=== PATIENT | female | born 1995 | race Caucasian/White ===

== ENCOUNTER → 2022-02-03 13:36 | Outpatient (ROUT) | payer OTHER, SELFPAY ==
[2022-02-03 17:29] LABS: COVID-19 CEPHEID PCR (VTM/NP) Negative (Negative)
== END ==
PROVIDERS: PCP Nurse Practitioner Family; Visit Provider Otolaryngology
DX: J34.89 Other specified disorders of nose and nasal sinuses (principal); R51.9 Headache, unspecified; G44.89 Other headache syndrome; J34.3 Hypertrophy of nasal turbinates; J34.2 Deviated nasal septum
CPT/HCPCS: U0003; U0005

== ENCOUNTER 2022-02-05 09:35 | Day surgery (SDC) | payer OTHER, SELFPAY ==
[2022-02-02 07:55] VITALS: BMI 32.3
[2022-02-05] VITALS (7 sets, daily range): BP systolic 128–138; BP diastolic 91–99; PULSE 68–88; RESP 10–16; TEMP 36.2–36.6; O2SAT 98–100; BMI 32.5
[2022-02-05] MEDS: OXYMETAZOLINE NASAL SPRAY 15 ML 2 SPRAYS NASAL ×2 (10:09→11:55)
[2022-02-05] MEDS: LACTATED RINGERS 1,000 ML 84 ML IV (10:10)
--- NOTE | 2022-02-05 10:42 | PM.PREOP ---
Pre-operative Note Interval Note History & Physical reviewed/Exam performed by Physician: Yes Changes to H&P: No
--- NOTE | 2022-02-05 10:42 | PM.HP.1 ---
History of Present Illness History of Present Illness Date Patient Seen: 02/05/22 Time Patient Seen: 10:42 Chief complaint: [facility] [place] Narrative: 26-year-old female last seen in clinic 10/28/2021 for nasal airway obstruction with known septal deviation, presents for septoplasty and turbinate reduction. No interval health changes, would like to proceed. No recent cough cold or fever. Patient History Medical History Chronic rhinosinusitis Nasal septal deviation Family & Social History Social History: household members spouse Tobacco & Substance use: Smoking Status Never smoker alcohol intake current alcohol intake frequency a few times a week Substance Use Type does not use Meds Home Medications and Allergies Home Medications Medication Instructions Recorded Confirmed Type Concerta 36 mg PO DAILY 02/02/22 02/05/22 History etonogestrel 68 mg subdermal See Rx Instructions .Route .COMPLEX 02/02/22 02/05/22 History implant (Nexplanon) propranolol 60 mg capsule,24 60 mg PO DAILY 02/05/22 02/05/22 History hr,extended release rizatriptan 10 mg tablet 10 mg PO PRN PRN Migraine Headache 02/05/22 02/05/22 History Allergies Allergy/AdvReac Type Severity Reaction Status Date / Time No Known Drug Allergies Allergy Verified 02/05/22 09:46 Review of Systems Review of Systems Narrative: Negative except as listed in the HPI Exam Vital Signs (past 8 hours): - 02/05/22 09:56 Temperature 97.9 F Pulse Rate 88 Respiratory Rate 16 Blood Pressure 137/92 H Pulse Oximetry 98 Oxygen Delivery Method Room Air Oxygen Flow Rate 0 Oxygen Delivery Method Room Air Oxygen Flow Rate 0 Narrative Exam Narrative: Well-developed well-nourished female in no acute distress heart regular rate and rhythm without murmur, lungs clear to auscultation bilaterally. Right caudal septum 2 to 3+ deviated. Assessment & Plan Assessment & Plan narrative: Assessment: Nasal airway obstruction, septal deviation, inferior turbinate hypertrophy Plan: Following discussion of the material risks benefits complications and alternatives, she elected to proceed with septoplasty and bilateral inferior turbinate reduction, as outpatient. Time Spent With Patient Critical Care time: I spent a total of [] minutes of critical care time on this patient's care today; this time is exclusive of procedural time.
--- NOTE | 2022-02-05 10:45 | PM.OP.1 ---
Operative Date/Time/Diagnoses Date of procedure: 02/05/22 Time of procedure: 12:35 Pre-op diagnosis: Nasal airway obstruction, septal deviation, inferior turbinate hypertrophy Post-op diagnosis: same Procedure & Clinicians Procedure: 1. Septoplasty 2. Bilateral inferior turbinate reduction via intramural cautery Same procedure as scheduled: Yes Indications: 26-year-old female with above diagnoses incompletely managed with medical therapy presents for the above procedures. Following discussion of the material risks benefits complications and alternatives, the patient elected to proceed. Surgeon: Abdirahman Barros Click Yes if Unassisted: Yes Anesthesia Type: General and Local Operative Notes Findings: 2 to 3+ right caudal deviation, stiff cartilage, resolved at completion. 2-3+ LEFT high mid deviation. Estimated Blood Loss (mL): 75 Procedure in detail: Following identification and confirmation of consent as well as preoperative Afrin nasal spray, the patient was brought to the operating room suite and placed in the supine position. General endotracheal anesthesia was administered. I infiltrated the septum widely bilaterally with 1% lidocaine 1 100,000 epinephrine followed by temporary packing with cotton with Afrin and 4% lidocaine. Following sterile prep and drape, the packing was removed and I performed a right joseph-transfixion incision, elevated the right mucoperichondrial and mucoperiosteal flap. I disarticulated near the bony/cartilaginous junction and elevated the left mucoperiosteal flap. Deviated portions of the perpendicular plate of the ethmoid and vomer were resected. The residual quadrilateral cartilage was further straightened by trimming it inferiorly as well as reducing the maxillary crest. A 2 mm strip of cartilage paralleling the residual 1 cm dorsal and caudal strut was resected to further straighten the quadrilateral cartilage. The hemitransfixion incision was closed with interrupted 5 0 chromic followed by a running 4 0 plain gut mattress suture to reapproximate the septal flaps. At case completion, 20/1000th of an inch silastic splints were placed bilaterally, sutured anteriorly with a single 4 0 nylon. The head of each inferior turbinate had been previously infiltrated with additional local anesthetic and a 25 gauge spinal needle was used to impale the length of the turbinate, with cautery on a setting of 15 activated on slow withdrawal. The turbinates were then outfractured. The procedure completed, sponge and needle counts were correct and the patient was extubated in the operating room and taken to recovery room in stable condition without known complication. Complications: none Post-operative Condition: stable Disposition: same day surgery Plan for aftercare: Nasal saline every hour while awake, begin irrigations t.i.d. tomorrow if desired. Polysporin to the nostrils at all times, Tylenol alternating with Advil for pain control, oxycodone for breakthrough pain. Elevate head of bed, no nose blowing, no straining for 2 weeks. Ice directly under the nose on the upper lip has tolerated 24-48 hours at a minimum. Follow-up in 1 week for nasal splint removal.
--- NOTE | 2022-02-05 11:44 | SUR.OPER ---
Supine on padded OR bed, head on pillow, arms padded and tucked at sides, legs uncrossed, safety belt at thigh, tape over blanket over lower legs .
[2022-02-05] MEDS: LIDOCAINE 1% W/EPI 6 ML INJ (11:54)
[2022-02-05] MEDS: LIDOCAINE 4% SOLN 50 ML 20 ML TOP (11:54)
[2022-02-05] MEDS: ONDANSETRON 4 MG/2 ML INJ IV (12:58)
[2022-02-05] MEDS: OXYCODONE/ACETAMINOPHEN 5/325 TABLET 1 TAB PO (13:02)
== END 2022-02-05 13:25 | disposition home or self-care (01) ==
PROVIDERS: PCP Nurse Practitioner Family; Referring Provider Otolaryngology; Visit Provider Otolaryngology
PROC: (CPT 30520; principal; 2022-02-05 10:30)
DX: J34.89 Other specified disorders of nose and nasal sinuses (principal); J34.2 Deviated nasal septum; J34.3 Hypertrophy of nasal turbinates; G44.89 Other headache syndrome; J32.0 Chronic maxillary sinusitis
CPT/HCPCS: 30520; 30802; A9270; J2250; J2405; J3010